=== PATIENT | female | born 1975 | race Caucasian/White ===

== ENCOUNTER 2019-07-12 07:50 | Inpatient (IN) | payer OTHER ==
[~2019-07-12] VITALS: Ht 157.5 cm; Wt 98.4 kg
[2019-07-12] VITALS (14 sets, daily range): BP systolic 75–120
--- NOTE | 2019-07-12 07:50 | NUR ---
MACKENZIE co-worker, near syncopal at admin window. Assisted into wheelchair by Marcel OROURKE and myself. Pt unable to assist, possible allergic reaction per co-worker. Placed in room 01. Placed on commissioner of officials, blood pressure machine and pulse oximeter. To gown for exam. Side rails up. Dr. Oswald to bedside immediately. Pt skin red, blotchy, eyes puffy. Denies difficulty breathing. Responsive to voice. Co-worker states that she ate egg sandwich and took 400mg ibuprofen for headache. Unknown allergies.
--- NOTE | 2019-07-12 08:00 | NUR ---
CHRISTOPHER Herron at bedside examining patient.
--- NOTE | 2019-07-12 08:05 | NUR ---
Meds give by RN. Pt skin redness to neck, face and torso getting better, eyes open spontaneously. Pt states that she is feeling better.
[2019-07-12] MEDS ORDERED: NACL 0.9% 1,000 ML IV ONE ×4 (08:15→10:00)
[2019-07-12] MEDS ORDERED: methylPREDNISolone SOD SUCC/PF 62.5 MG/ML VIAL IVP ONE (08:15)
[2019-07-12] MEDS ORDERED: EPINEPHrine 1 MG/ML AMP IV ONE (08:15)
[2019-07-12] MEDS ORDERED: DIPHENHYDRAMINE INJ 50 MG/ML VIAL IVP ONE (08:15)
[2019-07-12] MEDS ORDERED: FAMOTIDINE PF 20 MG/2 ML VIAL IVP ONE (08:15)
[2019-07-12] MEDS ORDERED: ONDANSETRON HCL 4 MG/2 ML VIAL IVP ONE (08:15)
--- NOTE | 2019-07-12 08:15 | NUR ---
pt received Epi 0.3mg, Benadryl 50mg, Pepcied 40mg, Zofran 4mg, and SoluMEdrol 125mg all IVP. Given per MD order. Pt is now awake and is responding to commands. Pt reports feeling better.
[2019-07-12 08:24] LABS: BASOPHILS % (AUTO) 0.4 % (0.0-2.0); EOSINOPHILS # (AUTO) 0.2 K/uL (0.0-0.4); EOSINOPHILS % (AUTO) 1.7 % (0.0-4.0); HEMATOCRIT 44.1 % (36-48); HEMOGLOBIN 14.5 g/dL (12.0-16.0); LYMPHOCYTES # (AUTO) 5.3 K/uL (1.0-5.5); MEAN CORPUSCULAR HEMOGLOBIN 29 pg (27-31); MEAN CORPUSCULAR HGB CONC 33 % (32-36); MEAN CORPUSCULAR VOLUME 88 fL (79.0-98.0); MONOCYTES # (AUTO) 0.7 K/uL (0.0-1.0); MONOCYTES % (AUTO) 7.1 % (1.7-9.3); NEUTROPHILS # (AUTO) 3.5 K/uL (1.8-7.7); NEUTROPHILS % (AUTO) 35.8 % (40.0-70.0); PLATELET COUNT (AUTO) 319 K/uL (130-430); RED BLOOD CELL COUNT(AUTO) 4.99 MIL/uL (4.2-6.2); RED CELL DISTRIBUTION WIDTH 13.8 % (9.0-15.0); WHITE BLOOD COUNT (AUTO) 9.7 K/uL (4.8-10.8)
--- NOTE | 2019-07-12 08:25 | NUR ---
Currently ruuning seconf NS bolus.
[2019-07-12] MEDS ORDERED: FAMOTIDINE PF 20 MG/2 ML VIAL ONE (08:30)
[2019-07-12 08:38] LABS: CALCIUM 8.5 mg/dL (8.4-11.0); CREATININE 0.98 mg/dL (0.55-1.30); POTASSIUM 3.5 mmol/L (3.5-5.1)
[2019-07-12 08:44] LABS: ALBUMIN 3.2 g/dL (3.4-4.8); TOTAL BILIRUBIN 0.5 mg/dL (0.0-1.0)
--- NOTE | 2019-07-12 08:45 | NUR ---
Running third NS bolus.
--- NOTE | 2019-07-12 09:59 | NUR ---
Amdmission orders received from Dr. López. Pt will be admitted to the ICU
--- NOTE | 2019-07-12 10:05 | NUR ---
Patient will be admitted to care of Dr. López. Admitted to ICU unit. Will go to room 1. Belongings list completed. Summary report printed. Report will be given at bedside.
--- NOTE | 2019-07-12 10:30 | NUR ---
ADMITTED FROM ER FOR ALLERGIC REACTION, PATIENT IS AWAKE AND ALERT, NOT IN ANY FORM OF DISTRESS, SINUS RHYTHM ON THE MONITOR. O2 SAT 99% ON ROOM AIR. DENIES ANY PAIN OR DISCOMFORT. MADE COMFORTABLE.
--- NOTE | 2019-07-12 12:30 | NUR ---
DR. MOMIN HERE TO SEE PATIENT, WITH ORDERS CARRIED OUT.
[2019-07-12] MEDS ORDERED: ACETAMINOPHEN 325 MG TABLET PO PRN (12:45)
--- NOTE | 2019-07-12 13:00 | NUR ---
IVF: NORMAL SALINE INFUSING AT 40 ML/HR
--- NOTE | 2019-07-12 15:30 | NUR ---
VOIDING FREELY. VITAL SIGNS STABLE.
[2019-07-12] MEDS: methylPREDNISolone SOD SUCC/PF 62.5 MG/ML VIAL IVP SCH ×2 (17:36→21:20)
--- NOTE | 2019-07-12 18:30 | NUR ---
COMFORTABLE, SINUS RHYTHM ON THE MONITOR.
--- NOTE | 2019-07-12 19:45 | NUR ---
Opening Note Pt in bed, AAO. SR on the monitor, on RA, saturating 100%. No s/s of distress noted at this time. Pt able to verbalize needs. IVF infusing. IV sites C/D/I, no s/s of infiltration noted. Pt able to get up to use bathroom. Steady gait noted. Bed locked in lowest position, marzena light in reach, and safety precautions in place. Will continue to monitor.
[2019-07-13] VITALS (18 sets, daily range): BP systolic 92–128
--- NOTE | 2019-07-13 01:14 | NUR ---
RN Rounds Pt in bed asleep. Able to get up to use restroom. No s/s of distress noted. No rashes noted. Pt VSS. Will continue to monitor.
--- NOTE | 2019-07-13 04:15 | NUR ---
RN Rounds Pt in bed asleep. No s/s of distress noted. VSS. Will continue to monitor.
[2019-07-13] MEDS: methylPREDNISolone SOD SUCC/PF 62.5 MG/ML VIAL IVP SCH ×2 (06:07→14:31)
--- NOTE | 2019-07-13 06:29 | NUR ---
Closing Note Pt remains asleep in bed. AAO. Able to get up to use restroom, able to verbalize needs. SR shown on monitor. Pt on RA, no s/s of distress noted. Pt IVF infusing. IV sites remains C/D/I. No s/s of infiltration noted. Pt rash appearing less visible. Pt not c/o of any pain or itching at this time. Bed locked in lowest position, call light in reach, and safety precautions in place. Will endorse to oncoming RN.
--- NOTE | 2019-07-13 07:35 | NUR ---
AM ASSESSMENT Pt received from night RN using SBAR. Pt laying in bed with eyes closed, easily awaken to verbal stimuli. Pt connected to in room monitor with vital signs stable. Pt using room air with oxygen saturation of 97%. Pt denies any distress at this time, denies throat itching, feeling of tightness or difficult breathing.
--- NOTE | 2019-07-13 08:07 | NUR ---
Hygiene Care Pt provided am hygiene care, pt able to ambulate to in room toilet, and sink without assistance for ADL's. Pt was initially monitored while ambulating, pt showed no issue with ambulation.
[2019-07-13] MEDS ORDERED: FAMOTIDINE 20 MG TABLET PO SCH (09:00)
--- NOTE | 2019-07-13 11:33 | NUR ---
Friends Pt has co-workers at bedside with pt. No complaints of acute distress or injury.
--- NOTE | 2019-07-13 14:07 | NUR ---
PATIENT RESTING: Patient resting quietly. No acute distress noted. Vital signs within normal range.
--- NOTE | 2019-07-13 17:50 | NUR ---
D/C Patient Patient given D/C instructions. Exit Care provided. Patient verbalized understanding. MD discussed with patient the results and treatment provided. Ambulatory with steady gait for discharge to home. Patient in stable condition, ID band removed. IV catheter removed, intact and dressing applied, no active bleeding. Rx given to pt directly sent to [facility] that pt confirmed. All belongings sent with patient.
== END 2019-07-13 18:05 | disposition home or self-care (01) | DRG 916 ==
LOC: SED 07:50 → SIC 09:56 → EDBD 09:56 → SIC 10:05
PROVIDERS: ADMIT Internal Medicine; ATTEND Internal Medicine
DX: T78.2XXA Anaphylactic shock, unspecified, initial encounter (principal); X58.XXXA Exposure to other specified factors, initial encounter; I95.9 Hypotension, unspecified; Z90.49 Acquired absence of other specified parts of digestive tract; Z91.013 Allergy to seafood; Y93.89 Activity, other specified; Y92.89 Other specified places as the place of occurrence of the external cause; Y99.8 Other external cause status
CPT/HCPCS: 36415; 71045; 80053; 84484; 85025; 87081; 96374; 96375; 99291; 99292; J2405; J2930; J3490; J7030